=== PATIENT | female | born 2000 | race Caucasian/White ===

== ENCOUNTER 2023-11-01 11:55 | Emergency (ER) | payer OTHER, SELFPAY ==
[2023-11-01 11:56] VITALS: BP 146/98; PULSE 85; RESP 18; TEMP 36; O2SAT 99; BMI 23.2
--- NOTE | 2023-11-01 12:29 | EX.ED.DYSGE1 ---
HPI History of Present Illness Chief Complaint: Dizziness Informant: patient Onset/Context/Timing Onset: Days (5) Context: Gradual Onset Timing: Continuous Quality: Lightheaded Location: Generalized Worsened by: Nothing Relieved by: Nothing Narrative Narrative: Patient presents with lightheadedness and dizziness that has been getting worse over the last 5 days. Patient states it is gradually getting worse. Patient states she feels lightheaded, like she might pass out. Patient states nothing makes it worse and nothing makes it better. Patient denies any recent fevers or chills. Patient states she is currently on her menstrual period. Patient states she has had similar symptoms with her menstrual period in the past. Patient states she had an episode of nausea and vomiting yesterday. Patient denies any hematemesis or coffee-ground emesis. Patient also admits to a mild headache. [facility] Medical History (Updated 11/01/23 @ 15:[address] Caleb Jang DO) Anemia Anxiety Medical History no medical history Home Medications sertraline 100 mg tablet (Zoloft) 100 mg PO DAILY 11/01/23 [History Last Taken Unknown] Allergy/AdvReac Type Severity Reaction Status Date / Time No Known Allergies Allergy Verified 11/01/23 11:56 Family History no significant family his Surgical History no surgical history no surgical history Social History Smoking Status: Never smoker ROS ROS ED Constitutional Constitutional ED: Denies chills or fever(s) Eyes Eyes: Denies blurry vision or change in vision ENT ENT ED: Denies rhinorrhea or sore throat Cardiovascular Cardiovascular: Denies chest pain or palpitations Respiratory/Chest Respiratory/Chest: Denies cough or dyspnea Gastrointestinal Gastrointestinal: Reports nausea and vomiting Genitourinary Genitourinary ED: Reports LMP (females 10-50) Details: Comment: (Current); Denies dysuria or hematuria Musculoskeletal Musculoskeletal: Denies back pain or neck pain Integumentary Denies abscess or rash Neurologic Neurologic: Reports headache(s); Denies weakness Allergic/Immunologic Allergic/Immunologic ED: Denies mouth swelling or urticaria EXAM Physical Exam Const Vital Signs: 11/01/23 11:56 11/01/23 12:35 Temperature 96.8 F L Temperature Source Temporal Pulse Rate 85 Pulse Rate [Lying] 88 Pulse Rate [Sitting (for 1 minute prior to obtaining)] 84 Pulse Rate [Standing (for 1 minute prior to obtaining)] 81 Respiratory Rate 18 Blood Pressure 146/98 H Blood Pressure [Lying] 134/83 H Blood Pressure [Sitting (for 1 minute prior to obtaining)] 141/90 H Blood Pressure [Standing (for 1 minute prior to obtaining)] 138/104 H Blood Pressure Mean 114 Blood Pressure Mean [Lying] 100 Blood Pressure Mean [Sitting (for 1 minute prior to obtaining)] 107 Blood Pressure Mean [Standing (for 1 minute prior to obtaining)] 115 Pulse Ox 99 Oxygen Delivery Method Room Air Positive well nourished and well developed General Appearance ED: well developed and NAD HEENT Reports moist mucous membranes Neck supple and no JVD Resp normal respiratory effort and clear to auscultation bilaterally Cardio regular rate and regular rhythm GI non-tender and non-distended Palpation: soft Extremity normal to inspection General Extremety ED: Negative for edema or tenderness General Extremity: Negative for edema Neuro oriented x3, CN's II-XII intact bilaterally and no sensory deficits noted Sensorium / Orientation: alert Motor Exam: strength 5/5 throughout Psych mental status grossly normal MDM MDM MDM Narrative Medical decision making narrative: Differential diagnose includes anemia, dehydration, electrolyte abnormality, ectopic , viral infection and anxiety. CBC will be obtained to assess for leukocytosis and anemia. Basic metabolic profile will be obtained to assess for electrolyte abnormality and renal function. Serum hCG will be obtained to assess for . COVID-19, influenza, and RSV PCR will be obtained to assess for viral infection. Lab Data Attestation: I reviewed the patient's lab results. Lab results narrative: CBC was reviewed and was within normal limits. Basic metabolic profile was reviewed and was within normal limits. Serum hCG was reviewed and was negative. RSV PCR was reviewed and was negative. COVID-19 PCR was reviewed and was negative. Influenza PCR was reviewed and was negative for influenza A and influenza B. Urinalysis was reviewed. There were positive nitrites. Leukocyte esterase was 100. There is 0-5 white blood cells seen and 5-10 epithelial cells seen. There is 2+ bacteria. Labs: Laboratory Results - last 24 hr 11/01/23 13:13 WBC 4.6 RBC 4.21 Hgb 13.1 Hct 37.4 MCV 88.8 MCH 31.1 MCHC 35.0 RDW Std Deviation 37.6 RDW Coeff of Candelario 11.8 Plt Count 303 MPV 9.6 Immature Gran % (Auto) 0.000 Neut % (Auto) 63.4 Lymph % (Auto) 26.2 [place] % (Auto) 7.6 Eos % (Auto) 2.4 Baso % (Auto) 0.4 Absolute Neuts (auto) 2.9 Absolute Lymphs (auto) 1.21 Nucleated RBC % 0 Sodium 142 Potassium 3.6 Chloride 113 H Carbon Dioxide 24.0 Anion Gap 5 BUN 6 L Creatinine 0.74 Estim Creat Clear Calc 99.48 Est GFR (MDRD) Af Amer 127 Est GFR (MDRD) Non-Af 105 BUN/Creatinine Ratio 8.1 L Glucose 97 Calcium 9.1 Serum , Qual NEGATIVE Additional Tests and Interventions Additional Tests or Interventions: Urine culture was ordered. Treatment and Re-Evaluation :: Orthostatic vital signs were obtained and were within normal limits. Patient was advised of her findings. Patient was instructed to drink plenty of fluids. Patient was instructed to follow-up with her primary care physician in 5 to 7 days. Patient was advised that if her urine culture shows any bacterial growth, she will be contacted for antibiotics. Patient understood and was agreeable with plan. All questions were answered. Discharge Plan Triage Chief Complaint: Dizziness Other Complaint: Nausea/Vomiting ED Provider: Caleb Jang Dx/Rx/DC Orders Clinical Impression: Lightheadedness, Near syncope Instructions: ED Near-Fainting, Uncertain Cause Prescriptions: No Action sertraline [Zoloft] 100 mg tablet 100 mg PO DAILY Primary Care Provider: Care Physician,No Primary Referrals: Nette Fermin MD [Med Staff - [employer] Equipment [employer]] - 5-7 Days NOT,DEFINED [Non-Staff] - Disposition Disposition: Home, Self Care
[2023-11-01 12:35] VITALS: BP 134/83; BP 138/104; BP 141/90; PULSE 81; PULSE 84; PULSE 88
[2023-11-01 13:25] LABS: Internal QC Validated? YES +Cl - CLEAR BKGD; Pregnancy, Serum, hCG Quali. NEGATIVE Negative
[2023-11-01 13:27] LABS: Mucous, Urine 0 SEEN /hpf (<or=2+); Red Blood Cells-Urine 0 SEEN /hpf (0-5)
[2023-11-01 13:31] LABS: Anion Gap 5 (5-15); BUN 6 mg/dL (7-18); BUN/Creat Ratio 8.1 RATIO (10-20); Calcium,Total 9.1 mg/dL (8.5-10.1); Chloride 113 mmol/L (98-107); Creatinine, Serum 0.74 mg/dL (0.55-1.02); EST Glomerular Filtration Rate 105 mL/min (>60); Est Glom Filt Rate - Afr Amer 127 mL/min (>60); Estimated Creatinine Clearance 99.48 ml/min; Glucose 97 mg/dL (74-106); Potassium 3.6 mmol/L (3.5-5.1); Sodium Level 142 mmol/L (136-145)
[2023-11-01 13:34] LABS: Absolute Lymphocyte Count 1.21 X10^3/uL (0.83-4.51); Absolute Neutrophil Count 2.9 X10^3/uL (2.0-7.7); Basophil# 0.02 X10^3/uL; Basophil% 0.4 % (0-1); Eosinophil# 0.11 X10^3/uL; Eosinophils% 2.4 % (0-5); Hematocrit 37.4 % (37-47); Hemoglobin 13.1 g/dL (12.0-15.0); Lymphocyte # 1.21 X10^3/ul (0.83-4.51); Lymphocyte % 26.2 % (19-41); Mean Corpuscular Hgb 31.1 pg (27.0-32.0); Mean Corpuscular Volume 88.8 fL (81-99); Mean Platelet Vol. 9.6 fl (6.2-12.0); Monocyte# 0.35 X10^3/uL; Monocyte% 7.6 % (0-10); NRBC Flagged by Analyzer 0 % (0-5); Neutrophil # 2.93 X10^3/uL (2.7-7.7); Neutrophil % 63.4 % (47-70); Platelet Count 303 K/mm3 (150-450); RBC Distribution Width CV 11.8 % (11.6-14.6); RBC Distribution Width SD 37.6 fl (35.1-43.9); Red Blood Count 4.21 M/mm3 (4.2-5.4); White Blood Count 4.6 K/mm3 (4.4-11.0)
[2023-11-01 13:42] LABS: Color, Urine Yellow (Yellow); Glucose, Dipstick Normal (Normal); Ketone-Dipstick Negative (Negative); Leukocyte Esterase-Dipstick 100 /ul (Negative); Nitrite-Dipstick Positive (Negative); Occult Blood-Urine 150 /ul (Negative); Protein-Dipstick 30 mg/dl (Negative); Specific Gravity, Urine 1.015 (1.002-1.030); Urine Bilirubin Dipstick Negative (Negative); Urine Clarity Clear (Clear); Urine Urobilinogen Normal (Normal)
[2023-11-01 14:00] LABS: Bacteria 2+ /hpf (None Seen); Squamous Epithelial Cells - UA 5-10 SEEN /hpf (5-10); White Blood Cells 0-5 SEEN /hpf (0-5)
== END 2023-11-01 15:43 | disposition home or self-care (01) ==
PROVIDERS: Emergency Provider Emergency Medicine; Visit Provider Emergency Medicine
DX: R42 Dizziness and giddiness (principal); R55 Syncope and collapse; R11.2 Nausea with vomiting, unspecified; F41.9 Anxiety disorder, unspecified; Z79.899 Other long term (current) drug therapy
CPT/HCPCS: 80048; 81001; 84703; 85025; 87631; 99285; A4216